=== PATIENT | female | born 1995 | race Caucasian/White ===

== ENCOUNTER 2017-04-20 11:10 | Emergency (ER) | payer MEDICAID ==
[~2017-04-20 11:10] MED LIST: FE A1TAB3 PO; IRON1TAB6 PO; PREN1CAP7 PO
[2017-04-20] MEDS ORDERED: LACTATED RINGER'S 1000 ML INJ 1,000 ML IV ONE (12:00)
--- NOTE | 2017-04-20 12:02 | PD ---
HPI Chief Complaint Congestion, nausea, vomiting Date Seen: Apr 20, 2017 Travel History International Travel<30 Days: No Contact w/Intl Traveler<30Days: No History of Present Illness HPI Patient is a 21 year old at 40-1/7 weeks gestation who presents today with flu like symptoms. Symptoms started 3 days ago with sinus pressure and sore throat. Yesterday, she started having nausea and vomiting and a subjective fever. She has had difficulty keeping down any food or drink. She also has rhinorrhea, right ear ache, and occasional cough. She denies any vaginal bleeding or discharge. No gush or leaking of fluid. Positive movement. care with [facility]. History Past Medical History Medical History: Denies Significant Hx Obstetric History Obstetric History Past Surgical History Surgical History: No Previous Surgery Family History Family History: Negative Social History Alcohol Use: No Tobacco Use: No Substance Abuse: No Allergies-Medications (Allergen,Severity, Reaction): Coded Allergies: No Known Allergies (Unverified , 04/20/17) Home Meds Active Scripts Iron-Vitamin C-Vitamin B12-Fol (Fe C Tab Plus 100-250-0.025-1 mg) 1 Tab Tab, 100 TAB PO DAILY, #30 TAB Prov:Thania Dent [facility] 03/06/17 Multi-Sharonda/Iron-Vit C-H91-Fgteq Acid (Feriva 13/03) 75-175-0.012-1 mg Tab, 1 TAB PO DAILY, #30 BOTTLE 6 Refills Prov:Luisa Altman [facility] 02/12/17 W/O Vit A W/ Fe Fumar (Citranatal [place]) 27-1-260 Mg Cap, 1 CAP PO DAILY for Nutritional Supplement, #30 CAP 11 Refills Prov:Janelle Hamm CNM [facility] 11/28/16 Review of Systems Except as stated in HPI: all other systems reviewed are Neg General / Constitutional: Fever, No: Chills Eyes: No: Blurred Vision, Visual changes HENT: No: Headaches Cardiovascular: No: Chest Pain or Discomfort, Palpitations Respiratory: Cough, No: Short of Breath Gastrointestinal: Nausea, Vomiting, No: Abdominal Pain Genitourinary: No: Dysuria, Hematuria, Pelvic Pain, Discharge, Vaginal Bleeding Musculoskeletal: No: Edema Psychiatric: No: Substance Abuse Physical Exam Narrative GENERAL: Well-nourished, well-developed patient. SKIN: Warm and dry. HEAD: Normocephalic and atraumatic. EYES: No scleral icterus. No injection or drainage. ENT: No nasal drainage noted. Mucous membranes pink. Airway patent. NECK: Supple, trachea midline. No JVD. CARDIOVASCULAR: Regular rate and rhythm without murmurs, gallops, or rubs. RESPIRATORY: Breath sounds equal bilaterally. No accessory muscle use. ABDOMEN/GI: Abdomen soft, non-tender, bowel sounds present, no rebound, no guarding Gravid to 40 weeks size GENITOURINARY: External Genitalia: intact and normal in appearance BUS glands: normal Cervix: posterior Dilatation: 0-1 Effacement: 50 Station: -3 Presentation: vertex Membranes: intact Uterine Contractions: occasional FHT's: Category: I Baseline: 130 Reactive: + Variability: moderate Decels: none EXTREMITIES: No cyanosis or edema. BACK: Nontender without obvious deformity. No CVA tenderness. NEUROLOGICAL: Awake and alert. Motor and sensory grossly within normal limits. Normal speech. Data Data Vital Signs Reviewed: Yes Orders Orders Vital Signs (Adult) .ON ADMISSION (04/20/17 11:39) ^ Labor Status (04/20/17 11:39) ^ Non Stress Test (04/20/17 11:39) ^ Hydration (04/20/17 11:39) Influenzae A/B Antigen (04/20/17 11:39) Lr (Bolus) Inj (04/20/17 12:00) Ondansetron Inj (Zofran Inj) (04/20/17 12:00) MDM Medical Record Reviewed: Yes Narrative Course / MDM 21 year old at 40-1/7 weeks gestation. 1. IUP- Category I tracing, reassuring. 2. Flu-like symptoms- obtain influenza swab, Zofran PRN nausea, 1L IV LR bolus dw Dr. Kebede Addendum: Influenza negative. Will discharge home with Z-pac, Zofran PRN nausea, and Phenergan with codeine PRN cough. Encourage rest, hydration, and Tylenol PRN fever. Return to ED if symptoms worsen. Follow-up with [facility] Diagnosis Diagnosis: Primary Impression: URI (upper respiratory infection) Qualified Codes: J06.9 - Acute upper respiratory infection, unspecified; B97.89 - Other viral agents as the cause of diseases classified elsewhere Additional Impression: 40 weeks gestation of Disposition: 01 DISCHARGE HOME Condition: Stable Scripts Promethazine-Codeine Liq (Promethazine-Codeine Liq) 6.25-10 Mg/5 Ml Syrp 5 ML PO Q6H Y for COUGH AND/OR COLD SYMPTOMS, #1 BOTTLE 0 Refills Prov: Caitlyn Bhat MD, R3 04/20/17 Ondansetron (Ondansetron) 4 Mg Tab 4 MG PO Q4-6H for na, #20 TAB Prov: Caitlyn Bhat MD, R3 04/20/17 Azithromycin (Azithromycin) 250 Mg Tab 250 MG PO DIRECTED for Infection, #6 TAB 0 Refills Take 2 tabs (500 mg) on day 1 then 1 tab daily x 4 days. Prov: Caitlyn Bhat MD, R3 04/20/17 Caitlyn Bhat MD, R3 Apr 20, 2017 12:02
[2017-04-20] MEDS ORDERED: ONDA1TAB16 PO (12:36)
[2017-04-20] MEDS ORDERED: AZIT250T3 PO (12:36)
[2017-04-20] MEDS ORDERED: PROM6.256 PO (12:38)
[2017-04-20] MEDS ORDERED: ONDANSETRON HCL 4 MG/2 ML VIAL IV ONE (13:00)
== END 2017-04-20 16:50 | disposition home or self-care (01) ==
LOC: HOBED 11:10
DX: O99.513 Diseases of the respiratory system complicating pregnancy, third trimester (principal); J06.9 Acute upper respiratory infection, unspecified; B97.89 Other viral agents as the cause of diseases classified elsewhere; Z3A.40 40 weeks gestation of pregnancy
CPT/HCPCS: 59025; 87804; 96361; 96374; 99284; J2405; J7120

== ENCOUNTER 2017-04-24 11:11 | Emergency (ER) | payer MEDICAID ==
[~2017-04-24 11:11] MED LIST changes: +AZIT250T3 PO; +ONDA1TAB16 PO; +PROM6.256 PO
--- NOTE | 2017-04-24 13:18 | PD ---
HPI Chief Complaint contractions Date Seen: Apr 24, 2017 Time Seen: 12:00 Travel History International Travel<30 Days: No Contact w/Intl Traveler<30Days: No Known Affected Area: No History of Present Illness HPI 21-year-old primigravida at 40 weeks 5 days' gestation who comes with a complaint of contraction activity and possible leakage of fluid. She denies bleeding. She reports good movement. Weeks Gestation: 40 Para: 0 : 1 History Past Medical History Medical History: Denies Significant Hx Past Surgical History Surgical History: No Previous Surgery Family History Family History: Negative Social History Alcohol Use: No Tobacco Use: No Substance Abuse: No Allergies-Medications (Allergen,Severity, Reaction): Coded Allergies: No Known Allergies (Unverified , 04/20/17) Home Meds Active Scripts Promethazine-Codeine Liq (Promethazine-Codeine Liq) 6.25-10 Mg/5 Ml Syrp, 5 ML PO Q6H Y for COUGH AND/OR COLD SYMPTOMS, #1 BOTTLE 0 Refills Prov:Caitlyn Bhat MD, R3 04/20/17 Ondansetron (Ondansetron) 4 Mg Tab, 4 MG PO Q4-6H for na, #20 TAB Prov:Caitlyn Bhat MD, R3 04/20/17 Azithromycin (Azithromycin) 250 Mg Tab, 250 MG PO DIRECTED for Infection, #6 TAB 0 Refills Take 2 tabs (500 mg) on day 1 then 1 tab daily x 4 days. Prov:Caitlyn Bhat MD, R3 04/20/17 Iron-Vitamin C-Vitamin B12-Fol (Fe C Tab Plus 100-250-0.025-1 mg) 1 Tab Tab, 100 TAB PO DAILY, #30 TAB Prov:Thania Dent [facility] 03/06/17 Multi-Sharonda/Iron-Vit C-C06-Djydl Acid (Feriva 13/03) 75-175-0.012-1 mg Tab, 1 TAB PO DAILY, #30 BOTTLE 6 Refills Prov:Luisa Altman [facility] 02/12/17 W/O Vit A W/ Fe Fumar (Citranatal [place]) 27-1-260 Mg Cap, 1 CAP PO DAILY for Nutritional Supplement, #30 CAP 11 Refills Prov:Janelle Hamm CNM [facility] 11/28/16 Review of Systems Except as stated in HPI: all other systems reviewed are Neg Physical Exam Narrative GENERAL: Well-nourished, well-developed patient. SKIN: Warm and dry. HEAD: Normocephalic and atraumatic. EYES: No scleral icterus. No injection or drainage. ENT: No nasal drainage noted. Mucous membranes pink. Airway patent. NECK: Supple, trachea midline. No JVD. CARDIOVASCULAR: Regular rate and rhythm without murmurs, gallops, or rubs. RESPIRATORY: Breath sounds equal bilaterally. No accessory muscle use. ABDOMEN/GI: Abdomen soft, non-tender, bowel sounds present, no rebound, no guarding Gravid to [-] weeks size Fundal Height: [-] GENITOURINARY: External Genitalia: intact and normal in appearance BUS glands: [Negative-] Cervix: [-] Dilatation: [-1] Effacement: [-] 50 Station: [--2] Presentation: [-Vertex] Membranes: [intact with negative amnio sure] Uterine Contractions: [-Mild, irregular] FHT's: Category: [-] Baseline: [-] Reactive: [-Yes] Variability: [-] Decels: [-] EXTREMITIES: No cyanosis or edema. BACK: Nontender without obvious deformity. No CVA tenderness. NEUROLOGICAL: Awake and alert. Motor and sensory grossly within normal limits. Five out of 5 muscle strength in all muscle groups. Normal speech. Data Data Vital Signs Reviewed: Yes MDM Medical Record Reviewed: Yes Narrative Course / MDM Assessment: Primigravida at 40 weeks 5 days gestation with negative examination for rupture membranes, and not in labor Plan: The patient is going to return on Thursday for induction of labor if this does not ensue spontaneously prior to that. Diagnosis Diagnosis: Primary Impression: 40 weeks gestation of Additional Impression: Irregular uterine contractions Disposition: DISCHARGE HOME Condition: Good Patient Instructions: General Instructions Additional Instructions: drink 8-10 glasses of water a day. Return on Thursday at 10:00 A.M. for induction of labor. Departure Forms: Tests/Procedures Akil Villarreal MD Apr 24, 2017 13:18
== END 2017-04-24 13:40 | disposition home or self-care (01) ==
LOC: HOBED 11:11
DX: O62.9 Abnormality of forces of labor, unspecified (principal); Z3A.40 40 weeks gestation of pregnancy
CPT/HCPCS: 84112; 99283

== ENCOUNTER 2017-04-26 03:22 | Inpatient (IN) | payer MEDICAID ==
[2017-04-26] VITALS (51 sets, daily range): BP systolic 98–140; BP diastolic 57–96; PULSE 74–132; RESP 17–18; TEMP 98.9–99.5; O2SAT 100
[~2017-04-26] VITALS: Ht 165.1 cm; Wt 66.7 kg
[2017-04-26 04:10] LABS: AUTOMATED NEUTROPHIL # 9.9 TH/MM3 (1.8-7.7); BASOPHIL # 0.1 TH/MM3 (0-0.2); BASOPHIL % 0.4 % (0.0-2.0); EOSINOPHIL # 0.1 TH/MM3 (0-0.4); EOSINOPHIL % 0.4 % (0.0-4.0); HEMO FLAGS DIFF FINAL; LYMPH % 17.6 % (9.0-44.0); LYMPHOCYTE # 2.3 TH/MM3 (1.0-4.8); MEAN CELL VOLUME 82.9 FL (80.0-100.0); MEAN CORPUSCULAR HEMOGLOBIN 26.6 PG (27.0-34.0); MEAN CORPUSCULAR HGB CONC 32.1 % (32.0-36.0); MONO % 6.5 % (0.0-8.0); NEUT % 75.1 % (16.0-70.0); PLATELET COUNT 198 TH/MM3 (150-450); RED BLOOD COUNT 4.22 MIL/MM3 (4.00-5.30); RED CELL DISTRIBUTION WIDTH 15.3 % (11.6-17.2); WHITE BLOOD COUNT 13.2 TH/MM3 (4.0-11.0)
[2017-04-26] MEDS ORDERED: fentaNYL 2MCG-BUPIV 0.125% INJ 100 ML ONE (04:20)
[2017-04-26] MEDS ORDERED: ePHEDrine/NS 25 MG/5 ML SYR ONE (04:20)
[2017-04-26] MEDS ORDERED: LACTATED RINGER'S 1000 ML INJ 1,000 ML IV SCH (04:41)
[2017-04-26] MEDS ORDERED: LACTATED RINGER'S 1000 ML INJ 1,000 ML IV PRN (04:41)
[2017-04-26 04:44] LABS: BACTERIA, URINE RARE /hpf; BLOOD, URINE MOD (NEG); COMMENT (UR) CULT NOT INDICATED; CULTURE IF INDICATED CULT NOT INDICATED; GLUCOSE,URINE NEG (NEG); KETONE, URINE 10 mg/dL (NEG); MUCUS URINE FEW /lpf (OCC); NITRITE,URINE NEG (NEG); SQUAMOUS EPITHELIAL CELL URINE <1 /hpf (0-5); TRANSITIONAL EPI CELLS, URINE <1 /hpf; URINE COLOR YELLOW (YELLW/STRAW)
[2017-04-26] MEDS ORDERED: CITRIC ACID-SODIUM CITRATE LIQ 30 ML UDC PO SCH (04:45)
[2017-04-26] MEDS ORDERED: SODIUM CHLORID 0.9% 500 ML INJ 500 ML IV PRN (04:45)
[2017-04-26] MEDS ORDERED: LIDOCAINE HCL 1% 50 ML VIAL INFIL PRN (04:45)
[2017-04-26] MEDS ORDERED: LIDOCAINE HCL 1% 50 ML VIAL I-DERMAL PRN (04:45)
[2017-04-26] MEDS ORDERED: OXYTOCIN 30 UNITS-500ML PREMIX 500 ML IV ONE (04:45)
[2017-04-26] MEDS ORDERED: ONDANSETRON HCL 4 MG/2 ML VIAL IV PRN (04:45)
[2017-04-26] MEDS ORDERED: MINERAL OIL 10 ML VIAL TOPICAL PRN (04:45)
--- NOTE | 2017-04-26 04:59 | PD ---
HPI Chief Complaint Leakage of fluid, SROM Date Seen: Apr 26, 2017 Time Seen: 04:44 Travel History International Travel<30 Days: No Contact w/Intl Traveler<30Days: No Known Affected Area: No History of Present Illness HPI Patient is a 21-year-old at 41 weeks and 0 days who presents with SROM at 2:15 AM. She's found to be Amnisure positive in the OB ED. Since SROM, she has had contractions every 7-10 minutes, which have increased in frequency to every 4-5 minutes that she feels as crampy low back pain. [facility]. She was scheduled to have an induction of labor today at 10 AM. Weeks Gestation: 41 Para: 0 : 1 History Past Medical History Narrative Medical Denies Obstetric History Obstetric History Patient is a . She reports an uncomplicated thus far. Past Surgical History Narrative Surgical Denies Family History Narrative Family History Her father has a history of heart disease. Social History Narrative Social History Patient lives with her boyfriend and his family. Alcohol Use: No Tobacco Use: No Substance Abuse: No Allergies-Medications (Allergen,Severity, Reaction): Coded Allergies: No Known Allergies (Unverified , 04/20/17) Home Meds Active Scripts Iron-Vitamin C-Vitamin B12-Fol (Fe C Tab Plus 100-250-0.025-1 mg) 1 Tab Tab, 100 TAB PO DAILY, #30 TAB Prov:Thania Dent [employer] 03/06/17 W/O Vit A W/ Fe Fumar (Citranatal [place]) 27-1-260 Mg Cap, 1 CAP PO DAILY for Nutritional Supplement, #30 CAP 11 Refills Prov:Janelle Hamm CNM [facility] 11/28/16 Discontinued Scripts Promethazine-Codeine Liq (Promethazine-Codeine Liq) 6.25-10 Mg/5 Ml Syrp, 5 ML PO Q6H Y for COUGH AND/OR COLD SYMPTOMS, #1 BOTTLE 0 Refills Prov:Caitlyn Bhat MD, R3 04/20/17 Ondansetron (Ondansetron) 4 Mg Tab, 4 MG PO Q4-6H for na, #20 TAB Prov:Caitlyn Bhat MD, R3 04/20/17 Azithromycin (Azithromycin) 250 Mg Tab, 250 MG PO DIRECTED for Infection, #6 TAB 0 Refills Take 2 tabs (500 mg) on day 1 then 1 tab daily x 4 days. Prov:Caitlyn Bhat MD, R3 04/20/17 Multi-Sharonda/Iron-Vit C-U23-Juwpz Acid (Feriva 13/03) 75-175-0.012-1 mg Tab, 1 TAB PO DAILY, #30 BOTTLE 6 Refills Prov:Luisa Altman 02/12/17 Review of Systems General / Constitutional: No: Fever, Chills Eyes: No: Diploplia, Blurred Vision, Visual changes HENT: No: Headaches Cardiovascular: No: Chest Pain or Discomfort Respiratory: No: Short of Breath Gastrointestinal: No: Nausea, Vomiting, Abdominal Pain Physical Exam Blood pressure 134/84, pulse 87, respiratory rate 18, temperature 98.1, pain 7 out of 10 Narrative GENERAL: Well-nourished, well-developed female patient. SKIN: Warm and dry. HEAD: Normocephalic and atraumatic. EYES: No scleral icterus. No injection or drainage. ENT: No nasal drainage noted. Mucous membranes pink. Airway patent. NECK: Supple, trachea midline. No JVD. CARDIOVASCULAR: Regular rate and rhythm without murmurs, gallops, or rubs. RESPIRATORY: Breath sounds equal bilaterally. No accessory muscle use. ABDOMEN/GI: Abdomen soft, non-tender, bowel sounds present, no rebound, no guarding Gravid to 41 weeks size GENITOURINARY: Per nurse report External Genitalia: intact and normal in appearance Dilatation: 2cm Effacement: 90% Station: -2 Presentation: Vertex Membranes: ruptured Uterine Contractions: every 7-10 minutes increased to every 4-5 minutes FHT's: Difficult to keep on monitor. Patient moving and repositioning secondary to pain. Category: Category 1 Baseline: 130 Reactive: Reactive Variability: Moderate Decels: None EXTREMITIES: No cyanosis or edema. BACK: Nontender without obvious deformity. No CVA tenderness. NEUROLOGICAL: Awake and alert. Motor and sensory grossly within normal limits. Five out of 5 muscle strength in all muscle groups. Normal speech. Data Data Vital Signs Reviewed: Yes Orders Orders Ob (2e) Additional Admit Info (04/26/17 03:56) Complete Blood Count With Diff (04/26/17 03:57) Abo/Rh Blood Type (04/26/17 03:57) Hold Clot (04/26/17 03:57) Fentanyl 2mcg-Bupiv 0.125% Inj (Fentanyl (04/26/17 04:20) Ephedrine/Ns 25 Mg/5 Ml Syr (Ephedrine/N (04/26/17 04:20) Urinalysis - C+S If Indicated (04/26/17 04:22) Admit To Inpatient (04/26/17 ) Code Status (04/26/17 04:41) Vital Signs (Adult) .Per protocol (04/26/17 04:41) Activity Oob Ad Lakisha (04/26/17 04:41) Heart (04/26/17 04:41) Group B Strep: Negative Labs Laboratory Tests Test 04/26/17 03:54 04/26/17 04:16 White Blood Count 13.2 Red Blood Count 4.22 Hemoglobin 11.2 Hematocrit 35.0 Mean Corpuscular Volume 82.9 Mean Corpuscular Hemoglobin 26.6 Mean Corpuscular Hemoglobin Concent 32.1 Red Cell Distribution Width 15.3 Platelet Count 198 Mean Platelet Volume 8.6 Neutrophils (%) (Auto) 75.1 Lymphocytes (%) (Auto) 17.6 Monocytes (%) (Auto) 6.5 Eosinophils (%) (Auto) 0.4 Basophils (%) (Auto) 0.4 Neutrophils # (Auto) 9.9 Lymphocytes # (Auto) 2.3 Monocytes # (Auto) 0.9 Eosinophils # (Auto) 0.1 Basophils # (Auto) 0.1 CBC Comment DIFF FINAL Differential Comment MDM Plan Patient is a 21-year-old at 41 weeks and 0 days who presents with SROM at 2:15 AM. She's found to be Amnisure positive in the OB ED. Since SROM, she has had contractions every 7-10 minutes, which have increased in frequency to every 4-5 minutes that she feels as crampy low back pain. [facility]. She was scheduled to have an induction of labor today at 10 AM. Prior to presentation, Last cervical exam was 1 cm. Today cervical exam is 2 cm dilated, 90% effaced, -2 station, vertex. 1. Admit for labor and delivery -Patient expressed interest in epidural, delayed cord clamping, skin to skin -She reports that she is GBS negative -Admit to inpatient -ABO/Rh blood type, hold clot, type and screen -Liquid diet -LR IV -Fentanyl IV -Monitor heart rate -Monitor vital signs -Epidural sdw Dr. Mohamud. wdw Dr. Kebede. Ash Floyd MD R2 Apr 26, 2017 04:59
[2017-04-26] MEDS ORDERED: SODIUM CHLOR 0.9% 1000 ML INJ 1,000 ML IV PRN (05:01)
--- NOTE | 2017-04-26 05:03 | HHI.HP ---
History & Physical H&P HPI HPI Chief Complaint Leakage of fluid, SROM Date Seen: Apr 26, 2017 Time Seen: 04:44 Travel History International Travel<30 Days: No Contact w/Intl Traveler<30Days: No Known Affected Area: No History of Present Illness HPI Patient is a 21-year-old at 41 weeks and 0 days who presents with SROM at 2:15 AM. She's found to be Amnisure positive in the OB ED. Since SROM, she has had contractions every 7-10 minutes, which have increased in frequency to every 4-5 minutes that she feels as crampy low back pain. [facility]. She was scheduled to have an induction of labor today at 10 AM. Weeks Gestation: 41 Para: 0 : 1 History (Limited) History Past Medical History Narrative Medical Denies Obstetric History Obstetric History Patient is a . She reports an uncomplicated thus far. Past Surgical History Narrative Surgical Denies Family History Narrative Family History Her father has a history of heart disease. Social History Narrative Social History Patient lives with her boyfriend and his family. Alcohol Use: No Tobacco Use: No Substance Abuse: No Allergies-Medications Allergies-Medications (Allergen,Severity, Reaction): Coded Allergies: No Known Allergies (Unverified , 04/20/17) Home Meds Active Scripts Iron-Vitamin C-Vitamin B12-Fol (Fe C Tab Plus 100-250-0.025-1 mg) 1 Tab Tab, 100 TAB PO DAILY, #30 TAB Prov:Thania Dent [employer] 03/06/17 W/O Vit A W/ Fe Fumar (Citranatal [place]) 27-1-260 Mg Cap, 1 CAP PO DAILY for Nutritional Supplement, #30 CAP 11 Refills Prov:Janelle Hamm CNM [facility] 11/28/16 Discontinued Scripts Promethazine-Codeine Liq (Promethazine-Codeine Liq) 6.25-10 Mg/5 Ml Syrp, 5 ML PO Q6H Y for COUGH AND/OR COLD SYMPTOMS, #1 BOTTLE 0 Refills Prov:Caitlyn Bhat MD, R3 04/20/17 Ondansetron (Ondansetron) 4 Mg Tab, 4 MG PO Q4-6H for na, #20 TAB Prov:Caitlyn Bhat MD, R3 04/20/17 Azithromycin (Azithromycin) 250 Mg Tab, 250 MG PO DIRECTED for Infection, #6 TAB 0 Refills Take 2 tabs (500 mg) on day 1 then 1 tab daily x 4 days. Prov:Caitlyn Bhat MD, R3 04/20/17 Multi-Sharonda/Iron-Vit C-O76-Qtrvq Acid (Feriva 13/03) 75-175-0.012-1 mg Tab, 1 TAB PO DAILY, #30 BOTTLE 6 Refills Prov:Luisa AltmanP 02/12/17 ROS Review of Systems General / Constitutional: No: Fever, Chills Eyes: No: Diploplia, Blurred Vision, Visual changes HENT: No: Headaches Cardiovascular: No: Chest Pain or Discomfort Respiratory: No: Short of Breath Gastrointestinal: No: Nausea, Vomiting, Abdominal Pain Physical Exam Physical Exam Blood pressure 134/84, pulse 87, respiratory rate 18, temperature 98.1, pain 7 out of 10 Narrative GENERAL: Well-nourished, well-developed female patient. SKIN: Warm and dry. HEAD: Normocephalic and atraumatic. EYES: No scleral icterus. No injection or drainage. ENT: No nasal drainage noted. Mucous membranes pink. Airway patent. NECK: Supple, trachea midline. No JVD. CARDIOVASCULAR: Regular rate and rhythm without murmurs, gallops, or rubs. RESPIRATORY: Breath sounds equal bilaterally. No accessory muscle use. ABDOMEN/GI: Abdomen soft, non-tender, bowel sounds present, no rebound, no guarding Gravid to 41 weeks size GENITOURINARY: Per nurse report External Genitalia: intact and normal in appearance Dilatation: 2cm Effacement: 90% Station: -2 Presentation: Vertex Membranes: ruptured Uterine Contractions: every 7-10 minutes increased to every 4-5 minutes FHT's: Difficult to keep on monitor. Patient moving and repositioning secondary to pain. Category: Category 1 Baseline: 130 Reactive: Reactive Variability: Moderate Decels: None EXTREMITIES: No cyanosis or edema. BACK: Nontender without obvious deformity. No CVA tenderness. NEUROLOGICAL: Awake and alert. Motor and sensory grossly within normal limits. Five out of 5 muscle strength in all muscle groups. Normal speech. Data Data Data Vital Signs Reviewed: Yes Orders Orders Ob (2e) Additional Admit Info (04/26/17 03:56) Complete Blood Count With Diff (04/26/17 03:57) Abo/Rh Blood Type (04/26/17 03:57) Hold Clot (04/26/17 03:57) Fentanyl 2mcg-Bupiv 0.125% Inj (Fentanyl (04/26/17 04:20) Ephedrine/Ns 25 Mg/5 Ml Syr (Ephedrine/N (04/26/17 04:20) Urinalysis - C+S If Indicated (04/26/17 04:22) Admit To Inpatient (04/26/17 ) Code Status (04/26/17 04:41) Vital Signs (Adult) .Per protocol (04/26/17 04:41) Activity Oob Ad Lakisha (04/26/17 04:41) Heart (04/26/17 04:41) Group B Strep: Negative Labs Laboratory Tests Test 04/26/17 03:54 04/26/17 04:16 White Blood Count 13.2 Red Blood Count 4.22 Hemoglobin 11.2 Hematocrit 35.0 Mean Corpuscular Volume 82.9 Mean Corpuscular Hemoglobin 26.6 Mean Corpuscular Hemoglobin Concent 32.1 Red Cell Distribution Width 15.3 Platelet Count 198 Mean Platelet Volume 8.6 Neutrophils (%) (Auto) 75.1 Lymphocytes (%) (Auto) 17.6 Monocytes (%) (Auto) 6.5 Eosinophils (%) (Auto) 0.4 Basophils (%) (Auto) 0.4 Neutrophils # (Auto) 9.9 Lymphocytes # (Auto) 2.3 Monocytes # (Auto) 0.9 Eosinophils # (Auto) 0.1 Basophils # (Auto) 0.1 CBC Comment DIFF FINAL Differential Comment MDM MDM Plan Patient is a 21-year-old at 41 weeks and 0 days who presents with SROM at 2:15 AM. She's found to be Amnisure positive in the OB ED. Since SROM, she has had contractions every 7-10 minutes, which have increased in frequency to every 4-5 minutes that she feels as crampy low back pain. [facility] She was scheduled to have an induction of labor today at 10 AM. Prior to presentation, Last cervical exam was 1 cm. Today cervical exam is 2 cm dilated, 90% effaced, -2 station, vertex. 1. Admit for labor and delivery -Patient expressed interest in epidural, delayed cord clamping, skin to skin -She reports that she is GBS negative -Admit to inpatient -ABO/Rh blood type, hold clot, type and screen -Liquid diet -LR IV -Fentanyl IV -Monitor heart rate -Monitor vital signs -Epidural sdw Dr. Mohamud. wdw Dr. Kebede. Ash Floyd MD R2 Apr 26, 2017 05:03
[2017-04-26] MEDS ORDERED: DO NOT ADMINISTER ANTICOAGULANTS PRN (05:30)
[2017-04-26] MEDS ORDERED: NO SYSTEM NARCOTICS PRN (05:30)
[2017-04-26] MEDS ORDERED: fentaNYL 2MCG-BUPIV 0.125% 100 ML EPIDURAL SCH (05:30)
[2017-04-26] MEDS ORDERED: ePHEDrine/NS 25 MG/5 ML SYR IV PRN (05:30)
[2017-04-26] MEDS ORDERED: OXYTOCIN 30 UNITS-500ML PREMIX 500 ML IV SCH ×2 (09:45→16:00)
--- NOTE | 2017-04-26 13:37 | PD.LABORPN ---
Subjective Subjective Feels contractions, even after epidural Objective Vital Signs Vital Signs Date Time Temp Pulse Resp B/P (MAP) Pulse Ox O2 Delivery O2 Flow Rate FiO2 04/26/17 12:45 18 04/26/17 12:30 98.9 04/26/17 12:30 82 132/81 (98) 04/26/17 12:06 17 04/26/17 12:01 78 132/67 (88) 04/26/17 11:35 18 04/26/17 11:31 85 119/93 (102) 04/26/17 11:00 83 115/76 (89) 04/26/17 10:45 17 04/26/17 10:30 98.9 04/26/17 10:30 81 132/82 (99) 04/26/17 10:02 18 04/26/17 10:01 86 137/87 (104) 04/26/17 09:45 17 04/26/17 09:30 84 109/57 (74) 04/26/17 09:00 99.0 04/26/17 09:00 88 111/66 (81) 04/26/17 08:45 17 04/26/17 08:31 78 116/58 (77) 04/26/17 08:15 17 04/26/17 08:00 103 131/71 (91) 04/26/17 07:45 17 04/26/17 07:31 97 112/57 (75) 04/26/17 07:10 99.5 18 04/26/17 07:10 99.1 04/26/17 07:00 84 18 124/67 (86) 04/26/17 06:30 91 112/87 (95) 04/26/17 06:17 17 04/26/17 06:01 83 113/63 (80) 04/26/17 05:31 74 137/70 (92) FHR Cat 1, baseline 120s Cervix 7cm/80% effaced/ 0 station. Pitocin at 4mu/min IUPC inserted. Clear fluid Objective Pelvic Exam: Cervix: [soft-] Dilatation: [7cm] Effacement: [80%-] Station: [0] Presentation: [vertex] Membranes: ruptured] Uterine Contractions: [2-3 minutes-] FHT's: Category: [2] Baseline: [-120s] Reactive: [-] Variability: [moderate] Decels: [variable rare] Weeks Gestation: 41 Gest Age Assessed Date: Apr 26, 2017 Gest Age Assessed Time: 12:00 Pt started active labor?: Yes Active labor start date: Apr 26, 2017 Active labor start time: 05:00 Medical induction of labor?: No Artificial rupture of membrane: No Assessment/Plan Assessment and Plan Term labor. Cat 2 tracing. Start amnioinfusion Making progress Will recheck in 1 hour Javed Garcia MD Apr 26, 2017 13:36
[2017-04-26] MEDS ORDERED: BUPIVACAINE/EPINEPHRINE 0.25% PF 10 ML VIAL ONE (13:52)
--- NOTE | 2017-04-26 15:51 | PD.OB.DELI ---
Weeks gestation: 41 Gest age assessed date: Apr 26, 2017 Gest age assessed time: 05:00 Pt started active labor?: Yes Medical induction of labor?: No Artificial rupture of membrane: No Anesthesia: Epidural Episiotomy: None Vaginal Delivery: Vacuum Presentation: Occiput posterior Nuchal Cord: x1 Delayed cord clamping (45 sec): No Delivery date: Apr 26, 2017 Delivery time: 15:12 One Minute : 7 Five Minute : 9 Placenta: Spontaneous delivery Laceration: Vaginal laceration Repair: Vicryl interrupted Estimated blood loss: 150cc Additional Information Pt fully dilated and pushed for 1 hour. Good maternal effort but minimal descent. ROP position. decision made to proceed with vacuum assisted vaginal delivery. Bladder emptied with straight catheter, using sterile technique. Station at 1+ Kiwi vacuum cap placed at occiput. We were able to vert vertex over course of 2 contractions. No pop-offs. Nuchal cord x 1 easily reduced. Cord clamped and divided and placed on mothers abdomen. Placenta/membranes delivered complete, spontaneous. Right labial 1st degree laceration repaired with interrupted 3.0 Vicryl. Javed Garcia MD Apr 26, 2017 15:51
[2017-04-26] MEDS ORDERED: WITCH HAZEL 50%/GLYCERIN 12.5% 40 PAD JAR TOPICAL PRN (16:00)
[2017-04-26] MEDS ORDERED: IBUPROFEN 600 MG TAB PO PRN (16:00)
[2017-04-26] MEDS ORDERED: ALUMINUM/MAGNESIUM/SIMETH 30 ML CUP PO PRN (16:00)
[2017-04-26] MEDS ORDERED: ACETAMINOPHEN 325 MG TAB PO PRN (16:00)
[2017-04-26] MEDS ORDERED: DIPHTH/TETANUS/ACEL PERTUSSIS (BOOSTER) 0.5 ML VIAL/PFS IM ONE (16:00)
[2017-04-26] MEDS ORDERED: SODIUM CHLORIDE 0.9% FLUSH 10 ML FLUSH IV FLUSH PRN (16:00)
[2017-04-26] MEDS ORDERED: ONDANSETRON ODT 4 MG TAB PO PRN (16:00)
[2017-04-26] MEDS ORDERED: MEASLES, MUMPS, RUBELLA VACCINE 0.5 ML VIAL SQ ONE (16:00)
[2017-04-26] MEDS ORDERED: BENZOCAINE 20% TOPICAL SPRAY 60 ML CAN TOPICAL PRN (16:00)
[2017-04-26] MEDS ORDERED: ZOLPIDEM TARTRATE 5 MG TAB PO PRN (16:00)
[2017-04-26] MEDS ORDERED: oxyCODONE/ACETAMINOPHEN 5 MG/325 MG TAB PO PRN ×2 (16:00)
[2017-04-26] MEDS ORDERED: DOCUSATE SODIUM 50 MG/SENNA 8.6 MG TAB PO PRN (16:00)
[2017-04-26] MEDS ORDERED: SODIUM CHLORIDE 0.9% FLUSH 10 ML FLUSH IV FLUSH SCH (21:00)
[2017-04-27 07:40] VITALS: BP 108/62; PULSE 62; RESP 14; TEMP 97.9
--- NOTE | 2017-04-27 09:25 | HHI.OB ---
Subjective Post Day: 1 Remarks day #1. AFVSS overnight. Pain minimal. Decreased lochia. Denies dysuria. No breast tenderness. Appetite good. No nausea or vomiting. [-] flatus. [-] bowel movement. Ambulating well. Denies calf pain, shortness of breath, or cough. Otherwise, she is doing well this morning and has no other complaints. Objective Vitals/I&O Vital Signs Date Time Temp Pulse Resp B/P (MAP) Pulse Ox O2 Delivery O2 Flow Rate FiO2 04/27/17 07:40 108/62 (77) 04/27/17 07:40 97.9 62 14 04/26/17 18:00 98.9 04/26/17 18:00 85 18 139/79 (99) 04/26/17 17:00 92 131/77 (95) 04/26/17 16:45 17 04/26/17 16:31 96 118/83 (95) 04/26/17 16:15 18 04/26/17 16:00 98.9 04/26/17 16:00 87 133/76 (95) 04/26/17 15:45 17 04/26/17 15:30 128/74 (92) 04/26/17 15:30 101 128/74 (92) 04/26/17 15:30 18 04/26/17 15:16 101 04/26/17 15:16 125 139/82 (101) 04/26/17 15:15 125 04/26/17 15:15 139/82 (101) 04/26/17 14:30 18 04/26/17 14:20 132 04/26/17 14:00 17 04/26/17 12:45 18 04/26/17 12:30 98.9 04/26/17 12:30 82 132/81 (98) 04/26/17 12:06 17 04/26/17 12:01 78 132/67 (88) 04/26/17 11:35 18 04/26/17 11:31 85 119/93 (102) 04/26/17 11:00 83 115/76 (89) 04/26/17 10:45 17 04/26/17 10:30 98.9 04/26/17 10:30 81 132/82 (99) 04/26/17 10:02 18 04/26/17 10:01 86 137/87 (104) 04/26/17 09:45 17 04/26/17 09:30 84 109/57 (74) Objective Remarks GENERAL: Well-nourished, well-developed patient. CARDIOVASCULAR: Regular rate and rhythm without murmurs, gallops, or rubs. RESPIRATORY: Breath sounds equal bilaterally. No accessory muscle use. ABDOMEN/GI: Abdomen soft, non-tender. Fundus: Firm, non-tender at umbilicus. GENITOURINARY: Light to moderate bleeding. EXTREMITIES: No cyanosis or edema, non-tender, without signs of DVT. Medications and IVs Current Medications Medications (Trade) Dose Ordered Sig/Rebekah Route Start Time Stop Time Status Last Admin Lactated Ringer's 1,000 ml @ 125 mls/hr Q8H IV 04/26/17 04:41 04/26/17 05:14 Lactated Ringer's 1,000 ml @ 3,000 mls/hr Q20M PRN IV 04/26/17 04:41 04/26/17 05:15 Sodium Chloride 1,000 ml @ 100 mls/hr Q10H PRN IV 04/26/17 05:01 (Xylocaine 1% Inj (50 ml)) 0.1 ml UNSCH X1 PRN I-DERMAL 04/26/17 04:45 04/29/17 04:44 (Bicitra Liq) 30 ml SENIOR STAFF CONSULTANT PO 04/26/17 04:45 04/30/17 04:44 (Zofran Inj) 4 mg Q6H PRN IV 04/26/17 04:45 (fentaNYL INJ) 50 mcg Q1H PRN IV PUSH 04/26/17 04:45 (fentaNYL INJ) 100 mcg Q1H PRN IV PUSH 04/26/17 04:45 (Xylocaine 1% Inj (50 ml)) 10 ml UNSCH X1 PRN INFIL 04/26/17 04:45 04/28/17 04:44 (Muri-Lube Oil) 10 ml UNSCH PRN TOPICAL 04/26/17 04:45 Fentanyl/ Bupivacaine HCl 100 ml @ 0 mls/hr TITRATE EPIDURAL 04/26/17 05:30 04/26/17 06:17 Oxytocin 500 ml @ 0 mls/hr TITRATE IV 04/26/17 09:45 04/26/17 09:59 (NS Flush) 2 ml BID IV FLUSH 04/26/17 21:00 (NS Flush) 2 ml UNSCH PRN IV FLUSH 04/26/17 16:00 (Tylenol) 650 mg Q4H PRN PO 04/26/17 16:00 04/26/17 20:10 (Motrin) 600 mg Q6H PRN PO 04/26/17 16:00 04/26/17 20:10 (Percocet 5-325 Mg) 1 tab Q4H PRN PO 04/26/17 16:00 (Percocet 5-325 Mg) 2 tab Q4H PRN PO 04/26/17 16:00 (Americaine 20% Top Spr) 1 spray Q4H PRN TOPICAL 04/26/17 16:00 04/26/17 20:09 (Tucks Pads) 1 applic QID PRN TOPICAL 04/26/17 16:00 04/26/17 20:09 (Kayla-Colace) 2 tab Q12H PRN PO 04/26/17 16:00 (Ambien) 5 mg HS PRN PO 04/26/17 16:00 (Mag-Al Plus Susp Liq) 15 ml Q8H PRN PO 04/26/17 16:00 (Zofran Odt) 4 mg Q6H PRN PO 04/26/17 16:00 Assessment/Plan Assessment and Plan 21 y/o who is PPD#1 s/p . -Continue routine care. -Percocet and Motrin PRN pain. -Encouraged OOB. Advised pelvic rest for 6 wks. -Will need a f/u appt. within 6 wks. -anticipate discharge 04/28 Kim Warren MD R1 Apr 27, 2017 09:24
--- NOTE | 2017-04-28 08:23 | HHI.OB ---
Subjective Post Day: 2 Remarks Pt seen and examined this morning. day # 2 AFVSS overnight. Decreased lochia. Denies dysuria. No breast tenderness. She is feeding the baby via breast and bottle. Appetite good. No nausea or vomiting. Patient has had a bowel movement. Ambulating well. Denies calf pain or shortness of breath. Otherwise, she is doing well this morning and has no other concerns. Objective Objective Remarks GENERAL: Well-nourished, well-developed patient. CARDIOVASCULAR: Regular rate and rhythm without murmurs, gallops, or rubs. RESPIRATORY: Breath sounds equal bilaterally. No accessory muscle use. ABDOMEN/GI: Abdomen soft, non-tender. Fundus: Firm, non-tender at umbilicus. GENITOURINARY: Light to moderate bleeding. EXTREMITIES: No cyanosis or edema, non-tender, without signs of DVT. Medications and IVs Current Medications Medications (Trade) Dose Ordered Sig/Rebekah Route Start Time Stop Time Status Last Admin Lactated Ringer's 1,000 ml @ 125 mls/hr Q8H IV 04/26/17 04:41 04/26/17 05:14 Lactated Ringer's 1,000 ml @ 3,000 mls/hr Q20M PRN IV 04/26/17 04:41 04/26/17 05:15 Sodium Chloride 1,000 ml @ 100 mls/hr Q10H PRN IV 04/26/17 05:01 (Xylocaine 1% Inj (50 ml)) 0.1 ml UNSCH X1 PRN I-DERMAL 04/26/17 04:45 04/29/17 04:44 (Bicitra Liq) 30 ml [employer]ARE SALES REPRESENTATIVE PO 04/26/17 04:45 04/30/17 04:44 (Zofran Inj) 4 mg Q6H PRN IV 04/26/17 04:45 (fentaNYL INJ) 50 mcg Q1H PRN IV PUSH 04/26/17 04:45 (fentaNYL INJ) 100 mcg Q1H PRN IV PUSH 04/26/17 04:45 (Muri-Lube Oil) 10 ml UNSCH PRN TOPICAL 04/26/17 04:45 Fentanyl/ Bupivacaine HCl 100 ml @ 0 mls/hr TITRATE EPIDURAL 04/26/17 05:30 04/26/17 06:17 Oxytocin 500 ml @ 0 mls/hr TITRATE IV 04/26/17 09:45 04/26/17 09:59 (NS Flush) 2 ml BID IV FLUSH 04/26/17 21:00 (NS Flush) 2 ml UNSCH PRN IV FLUSH 04/26/17 16:00 (Tylenol) 650 mg Q4H PRN PO 04/26/17 16:00 04/26/17 20:10 (Motrin) 600 mg Q6H PRN PO 04/26/17 16:00 04/26/17 20:10 (Percocet 5-325 Mg) 1 tab Q4H PRN PO 04/26/17 16:00 (Percocet 5-325 Mg) 2 tab Q4H PRN PO 04/26/17 16:00 (Americaine 20% Top Spr) 1 spray Q4H PRN TOPICAL 04/26/17 16:00 04/26/17 20:09 (Tucks Pads) 1 applic QID PRN TOPICAL 04/26/17 16:00 04/26/17 20:09 (Kayla-Colace) 2 tab Q12H PRN PO 04/26/17 16:00 (Ambien) 5 mg HS PRN PO 04/26/17 16:00 (Mag-Al Plus Susp Liq) 15 ml Q8H PRN PO 04/26/17 16:00 (Zofran Odt) 4 mg Q6H PRN PO 04/26/17 16:00 Assessment/Plan Problem List: (1) (spontaneous vaginal delivery) ICD Codes: O80 - Encounter for full-term uncomplicated delivery Assessment and Plan 21 y/o who is PPD#2 s/p . -Continue routine care. -Motrin PRN pain. -Encouraged OOB. Advised pelvic rest for 6 wks. -Will need a f/u appt. within 6 wks. -Patient be discharged home today. DW: Dr. Kebede Discharge Planning Today with baby. Carloz Whitaker MD R2 Apr 28, 2017 08:23
[2017-04-28] MEDS ORDERED: IBUP-232 PO (08:24)
[2017-04-28] MEDS ORDERED: SENN1TAB PO (08:24)
--- NOTE | 2017-04-28 08:25 | HHI.DCPOC ---
Discharge Care Plan Diagnosis: (1) (spontaneous vaginal delivery) Report Symptoms to Your Doctor -Temperature above 100.5 degrees -Redness, of incision or excessive or foul smelling drainage -Unusual pain or calf pain -Increased vaginal bleeding -Painful or difficulty urinating -Feelings of extreme sadness or anxiety after 2 weeks Goals to Promote Your Health * To prevent worsening of your condition and complications * To maintain your health at the optimal level Directions to Meet Your Goals Take your medications as prescribed Follow your dietary instruction Follow activity as directed Ensure plenty of rest for recovery Drink fluids for hydration Keep your appointments as scheduled Take your immunizations and boosters as scheduled If your symptoms worsen call your PCP, if no PCP go to Urgent Care Center or Emergency Room Smoking is Dangerous to Your Health. Avoid second hand smoke Call the 24-hour crisis hotline for domestic abuse at Carloz Whitaker MD R2 Apr 28, 2017 08:24
== END 2017-04-28 10:02 | disposition home or self-care (01) | DRG 775 ==
LOC: HOBED 03:22 → H2EB 03:57 → H1EA 17:46
PROVIDERS: ADMIT Obstetrics & Gynecology Maternal & Fetal Medicine; ATTEND Obstetrics & Gynecology Maternal & Fetal Medicine
PROC: 10D07Z6 Extraction of Products of Conception, Vacuum, Via Natural or Artificial Opening (ICD-10-PCS; principal; 2017-04-26)
PROC: 0HQ9XZZ Repair Perineum Skin, External Approach (ICD-10-PCS; 2017-04-26)
PROC: 00HU33Z Insertion of Infusion Device into Spinal Canal, Percutaneous Approach (ICD-10-PCS; 2017-04-26)
PROC: 3E0R3CZ (ICD-10-PCS; 2017-04-26)
DX: O48.0 Post-term pregnancy (principal); O69.81X0 Labor and delivery complicated by cord around neck, without compression, not applicable or unspecified; O70.0 First degree perineal laceration during delivery; Z37.0 Single live birth; Z3A.41 41 weeks gestation of pregnancy
CPT/HCPCS: 59025; 81001; 84112; 85025; 86850; 86900; 86901; 99283; J2590; J7120